=== PATIENT | female | born 1965 | race Caucasian/White ===

== ENCOUNTER 2018-05-06 08:55 | Day surgery (SDC) | payer OTHER ==
[2018-05-06] MEDS ORDERED: MIDAZOLAM 1 MG/ML 2 ML INJ ×3 (11:12→11:13)
[2018-05-06] MEDS ORDERED: FENTAnyl 50 MCG/ML VIAL (11:12)
== END 2018-05-06 11:27 | disposition home or self-care (01) ==
LOC: GIL 08:55
DX: K29.30 Chronic superficial gastritis without bleeding (principal); K44.9 Diaphragmatic hernia without obstruction or gangrene; K64.4 Residual hemorrhoidal skin tags; K64.8 Other hemorrhoids; K21.0 Gastro-esophageal reflux disease with esophagitis
CPT/HCPCS: 43239; 88305